=== PATIENT | male | born 1990 | race Caucasian/White ===

== ENCOUNTER → 2022-06-07 11:47 | Outpatient (CLI) | payer OTHER, SELFPAY ==
--- NOTE | 2022-06-07 11:50 | DI.MRI.S_ITS ---
PROCEDURE: MR KNEE LT WO CON INDICATIONS: Pain in left knee TECHNIQUE: Noncontrast sagittal PD fast spin echo and T2 fast spin echo with fat saturation, sagittal 3-D FLASH with fat saturation; coronal T1 spin echo and PD fast spin echo with fat saturation, and axial PD fast spin echo with fat saturation through the knee. COMPARISON: None. FINDINGS: Image quality: Excellent. Menisci: The medial and lateral menisci demonstrate normal morphology and internal signal. The meniscal root ligaments appear intact. Cruciate ligaments: The anterior and posterior cruciate ligaments appear intact. Medial structures: The medial collateral ligament appears intact. The semimembranosus tendon insertions and meniscocapsular junction appear intact. Visualized portions of the pes anserinus tendons appear normal. No abnormal bursal fluid. Lateral structures: The lateral collateral ligament, long and short heads of the biceps femoris tendon appear intact. The popliteus tendon appears normal. Iliotibial band appears normal. Anterior structures: The quadriceps and patellar tendons appear intact. Patellar alignment is normal. There is mild irregularity of the medial patellar retinaculum. No femoral trochlear dysplasia or ventral trochlear prominence. No edema in the infrapatellar fat pad. Bones and cartilage: No fractures. There is bone marrow contusion involving the lateral femoral condyle. Cortical irregularity is noted in the inferior medial aspect of the patella. The findings are compatible with transient patellar dislocation. The cartilage of the medial and lateral femorotibial compartments, as well as the patellofemoral compartment, appears normal in thickness. Joint space: There is moderate knee joint fluid. No Rivera's cyst. Normal appearing synovial plicae are incidentally noted. There is a mildly enlarged lymph node in the posterior superior to the knee measuring 1.0 x 1.2 cm. IMPRESSION: 1. Transient patellar dislocation. There is residual subchondral edema in the lateral femoral condyle and cortical irregularity in the medial inferior aspect of the patella. The medial patellar retinaculum is mildly thickened and irregular, compatible with partial tear/sprain. 2. Moderate knee joint effusion. 3. A mildly enlarged lymph node posterior to the knee, nonspecific. Dictated by: Óscar Gilliam M.D. on 06/07/2022 at 13:41 Approved by: Óscar Gilliam M.D. on 06/08/2022 at 9:34
== END ==
PROVIDERS: Referring Provider Nurse Practitioner Family; Visit Provider Nurse Practitioner Family
DX: M25.562 Pain in left knee (principal); M25.462 Effusion, left knee; R59.0 Localized enlarged lymph nodes
CPT/HCPCS: 73721

== ENCOUNTER → 2023-03-12 13:56 | Outpatient (CLI) | payer OTHER, SELFPAY ==
--- NOTE | 2023-03-12 | DI.ECHO.S_ITS ---
[place] [facility] +---------+ : : [address] : : : : [id number] : : : : Phone: [phone]+ Echocardiogram Report + + :Name: PATRICK ZULETA Study Date: 03/12/2023 Height: 66 in : :[facility] ReadingLocation: Weight: 175 lb : : Gender: Male BSA: 1.9 m2 : :: 1990 Age: 33 yrs BP: 131/88 mmHg: :Reason For Study: CHEST PAIN, TACHYCARDIA : :Ordering Physician: PHI, : :JANIS Performed By: Felicia Rizvi : :Referring: JANIS YIP : + + Interpretation Summary The echocardiogram is within normal limits. Procedure: A two-dimensional transthoracic echocardiogram with color flow and Doppler was performed. The study quality was technically adequate. There is no prior echocardiogram noted for this patient. The patient was in sinus rhythm with heart rates between 78-91 bpm during the exam. Left Ventricle: The left ventricle is normal in size and wall thickness. Left ventricular systolic function appears normal without focal wall motion abnormalities. The ejection fraction is estimated to be 60-65%. Diastolic parameters suggest probable normal left ventricular diastolic function and normal filling pressures. Right Ventricle: The right ventricle is normal in size and function. Atria: The left atrial size is normal. Right atrial size is normal. There is no Doppler evidence for an interatrial shunt. Mitral Valve: The mitral valve is normal in structure and function. There is no mitral regurgitation noted. Aortic Valve: The aortic valve is trileaflet. The aortic valve opens well. There is no aortic valve stenosis. No aortic regurgitation is present. Tricuspid Valve: The tricuspid valve is normal in structure and function. No tricuspid regurgitation. Pulmonary artery pressures cannot be estimated because of the lack of a measurable TR jet velocity. Pulmonic Valve: The pulmonic valve leaflets are thin and pliable; valve motion is normal. There is trace pulmonic regurgitation. Great Vessels: The aortic root is normal size. The dimensions of the ascending aorta are normal. The IVC is of normal diameter and collapses greater than 50% with a sniff. This suggests a low right atrial pressure of 3 mm Hg. Pericardium/ Pleura There is no pericardial effusion. There is no pleural effusion. MMode/2D Measurements & Calculations LVIDd: 4.9 cm LVOT diam: 2.0 cm LVIDs: 3.2 cm Ao root diam: 3.7 cm FS: 33.3 % asc Aorta Diam: 3.1 cm EPSS: 0.95 cm Ao Arch Diam (Prox Trans): 1.9 cm IVSd: 0.77 cm LVPWd: 0.72 cm LV willis. diameter/BSA (cm/m^2): 2.6 LV sys. diameter/BSA (cm/m^2): 1.7 LA A2 area: 15.5 cm2 RA long axis: 3.9 cm LA A4 area: 11.5 cm2 RA area: 10.8 cm2 LA length (vol): 4.1 cm RA vol: 25.3 ml LA vol: 37.3 ml RA : 13.4 ml/m2 LA vol index: 19.7 ml/m2 IVC diam: 1.0 cm RVD1 (basal): 3.5 cm RVD2 (mid): 2.9 cm TAPSE: 2.2 cm Doppler Measurements & Calculations Ao V2 max: 139.7 cm/sec LVOT Max Fer: 93.5 cm/sec Ao V2 mean: 100.6 cm/sec LV V1 max P.5 mmHg Ao max P.8 mmHg LV V1 VTI: 17.2 cm Ao mean P.4 mmHg JACKLYN(I,D): 2.2 cm2 Ao V2 VTI: 25.3 cm JACKLYN(V,D): 2.2 cm2 sev ratio: 0.68 JACKLYN indexed to BSA (cm^2/m^2): 1.2 MV E max fer: 78.1 cm/sec PA V2 max: 109.8 cm/sec MV A max fer: 43.6 cm/sec PA V2 mean: 82.4 cm/sec MV E/A: 1.8 PA mean P.0 mmHg Med Peak E' Fer: 10.2 cm/sec PA pr(Accel): 41.3 mmHg E/E' med: 7.7 Lat Peak E' Fer: 12.0 cm/sec E/E' lat: 6.5 E/e' average: 7.1 MV dec time: 0.11 sec SV(LVWILL): 56.5 ml Reading Physician:03:41 PM
== END ==
PROVIDERS: Referring Provider Chiropractor; Visit Provider Chiropractor
DX: R07.9 Chest pain, unspecified (principal); R00.0 Tachycardia, unspecified
CPT/HCPCS: 93005; 93010; 93306